=== PATIENT | male | born 1985 | race African-American/Black ===

== ENCOUNTER 2020-06-03 15:24 | Emergency (ER) | payer OTHER ==
[~2020-06-03] VITALS: Ht 180.3 cm; Wt 69.5 kg
[2020-06-03 15:45] VITALS: Ht 180.3 cm; Wt 69.5 kg
[2020-06-03 19:33] VITALS: BP 120/78
== END 2020-06-03 19:35 | disposition home or self-care (01) ==
LOC: ED 15:24
DX: S39.012A Strain of muscle, fascia and tendon of lower back, initial encounter (principal); S16.1XXA Strain of muscle, fascia and tendon at neck level, initial encounter; V49.49XA Driver injured in collision with other motor vehicles in traffic accident, initial encounter; Y93.I9 Activity, other involving external motion; Y92.488 Other paved roadways as the place of occurrence of the external cause; Y99.8 Other external cause status